=== PATIENT | female | born 1965 | race Caucasian/White ===

== ENCOUNTER 2021-09-19 22:37 | Emergency (ER) | payer OTHER ==
[~2021-09-19 22:37] MED LIST: NEURONTIN300 MG PO
[2021-09-20] MEDS ORDERED: NAPROXEN500 MG PO (03:58)
[2021-09-20] MEDS ORDERED: PERCOCET 5-3251 EACH PO (03:58)
== END 2021-09-20 04:20 | disposition home or self-care (01) ==
LOC: FER 22:37
DX: S86.011A Strain of right Achilles tendon, initial encounter (principal); I10 Essential (primary) hypertension; X50.1XXA Overexertion from prolonged static or awkward postures, initial encounter; Y92.009 Unspecified place in unspecified non-institutional (private) residence as the place of occurrence of the external cause; Z28.310 Unvaccinated for COVID-19
CPT/HCPCS: 73590; 73610; 96372; J1170; J2550